=== PATIENT | female | born 1975 | race Caucasian/White ===

== ENCOUNTER 2022-05-30 05:13 | Emergency (ER) | payer BC, MEDICAID, OTHER ==
[2022-05-30 05:29] VITALS: BP 138/99; PULSE 87
[2022-05-30 06:40] LABS: CORONAVIRUS COVID-19 NAA NEGATIVE (NEGATIVE)
== END 2022-05-30 06:25 | disposition home or self-care (01) ==
LOC: JP.ED 05:13
DX: J02.0 Streptococcal pharyngitis (principal); I10 Essential (primary) hypertension; Z86.16 Personal history of COVID-19; Z20.822 Contact with and (suspected) exposure to COVID-19
CPT/HCPCS: 0241U; 87880; 99282; 99283

== ENCOUNTER 2023-09-19 09:12 | Day surgery (SDC) | payer BC ==
[2023-09-19] MEDS: Sodium Chloride 0.9% 1,000 ML IV SCH (09:39)
[2023-09-19] MEDS ORDERED: Propofol 200 MG/20 ML SDV ONE (09:41)
[2023-09-19] MEDS ORDERED: Midazolam 1 MG/ML 2 ML SDV ONE (09:41)
[2023-09-19] MEDS ORDERED: fentaNYL 50 MCG/ML SDV ONE (09:41)
[2023-09-19 11:06] VITALS: BP 126/90; PULSE 58
== END 2023-09-19 11:10 | disposition home or self-care (01) ==
LOC: JP.SDS 09:12
PROVIDERS: ATTEND Surgery
DX: Z12.11 Encounter for screening for malignant neoplasm of colon (principal); I10 Essential (primary) hypertension
CPT/HCPCS: 00812-QZ; J2250; J2704; J3010; J7030